=== PATIENT | female | born 1925 | race African-American/Black ===

== ENCOUNTER 2017-01-16 12:06 | Inpatient (IN) | payer OTHER, MEDICAID ==
[~2017-01-16] VITALS: Ht 167.6 cm; Wt 54.0 kg
[2017-01-16] MEDS ORDERED: COR3 PO (12:19)
[2017-01-16] MEDS ORDERED: ATOR10TA69 PO (12:19)
[2017-01-16] MEDS ORDERED: DOCU-138 PO (12:19)
[2017-01-16] MEDS ORDERED: FERR325T6 PO (12:19)
[2017-01-16] MEDS ORDERED: LISI40TA4 PO (12:19)
[2017-01-16] MEDS ORDERED: HYDR-4134 PO (12:19)
[2017-01-16] MEDS ORDERED: LEVO25TA2 PO (12:19)
[2017-01-16] MEDS ORDERED: LEVVL SQ (12:19)
[2017-01-16] MEDS ORDERED: PIPERACILLIN/TAZ 3.375G PREMIX 50 ML IV ONE (13:30)
[2017-01-16] MEDS ORDERED: SODIUM CHLORIDE 0.9% 1000ML BAG (SEPSIS BOLUS) IV ONE (13:30)
[2017-01-16] MEDS ORDERED: VANCOMYCIN 1 G PREMIX 200 ML IV SCH (13:30)
[2017-01-16 14:29] LABS: BASOPHILS % 0.7 % (0.0-2.0); EOSINOPHILS % 1.7 % (0.0-5.0); HEMATOCRIT. 21.1 % (36.0-48.0); LYMPHOCYTES % 12.9 % (20.0-50.0); MEAN CORPUSCULAR HEMOGLOBIN 21.7 pg (28.0-32.0); MEAN CORPUSCULAR VOLUME 66.1 fL (81.0-99.0); MEAN PLATELET VOLUME 7.6 fl (7.4-10.4); MONOCYTES % 13.3 % (2.0-8.0); NEUTROPHILS % 71.4 % (40.0-76.0); PLATELET 321 x1000/uL (130-400); RED BLOOD CELL COUNT 3.18 mill/uL (4.2-5.4); RED CELL DISTRIBUTION WIDTH 19.5 % (11.6-14.6)
[2017-01-16 14:34] LABS: INR 1.2; PARTIAL THROMBOPLASTIN TIME 30.8 sec (23.4-31.0); PROTHROMBIN TIME 12.2 sec (9.4-11.6)
[2017-01-16 14:36] LABS: HEMOGLOBIN. 6.9 g/dL (12.0-16.0)
[2017-01-16 14:39] LABS: CARBON DIOXIDE 24 mEq/L (21-32); CHLORIDE 96 mEq/L (98-107)
[2017-01-16 15:25] LABS: PLATELET ESTIMATE NORMAL
[2017-01-17] VITALS (7 sets, daily range): BP systolic 132–172; BP diastolic 45–70
[2017-01-17] MEDS ORDERED: ASCO125T PO (01:08)
[2017-01-17] MEDS ORDERED: MULT-1116 PO (01:08)
[2017-01-17] MEDS ORDERED: DEXTROSE 50% WATER 50ML SYRINGE IV PRN (02:30)
[2017-01-17] MEDS ORDERED: VANCOMYCIN 750 MG PREMIX 150 ML IV SCH (06:00)
[2017-01-17] MEDS: BLOOD SUGAR DIAGNOSTIC STRIP TEST SCH ×3 (06:15→16:45)
[2017-01-17] MEDS: LEVOTHYROXINE SODIUM 25MCG TABLET PO SCH ×3 (06:15→18:09)
[2017-01-17] MEDS: FERROUS SULFATE 325MG TABLET PO SCH ×3 (06:15→18:09)
[2017-01-17] MEDS: INSULIN LISPRO 100 UNITS/ML SUBCUT SCH ×3 (06:16→18:10)
[2017-01-17 06:37] LABS: HEMATOCRIT 27.1 % (36.0-48.0); HEMOGLOBIN 8.9 g/dL (12.0-16.0)
[2017-01-17] MEDS: CARVEDILOL 3.125 MG TABLET PO SCH ×2 (08:56→18:35)
[2017-01-17] MEDS: DOCUSATE SODIUM 100MG CAPSULE PO SCH ×2 (08:57→18:09)
[2017-01-17] MEDS ORDERED: MEDICATION NOT ON FORMULARY EA (Multivitamin (Multi-Vitamin Daily) 1 EACH) PO SCH (09:00)
[2017-01-17] MEDS ORDERED: MEDICATION NOT ON FORMULARY EA (Ferrous Sulfate 325 MG) PO SCH (09:00)
[2017-01-17] MEDS ORDERED: LISINOPRIL 40MG TABLET PO SCH (09:00)
[2017-01-17] MEDS ORDERED: MULTIVITAMINS,THER W-MINERALS TABLET PO SCH (09:00)
[2017-01-17] MEDS ORDERED: ENOXAPARIN 40MG/0.4ML SYR SUBCUT SCH (09:00)
[2017-01-17] MEDS ORDERED: HYDRALAZINE HCL 25MG TABLET PO SCH (09:00)
[2017-01-17 13:37] LABS: CARBON DIOXIDE 23 mEq/L (21-32); CHLORIDE 103 mEq/L (98-107)
[2017-01-17] MEDS ORDERED: LIDOCAINE HCL 1% 20ML VIAL (Pyxis) INJ ONE (14:06)
[2017-01-17] MEDS ORDERED: ATORVASTATIN CALCIUM 10MG TABLET PO SCH (21:00)
[2017-01-17] MEDS ORDERED: INSULIN DETEMIR UD 100 UNITS/ML SYR SUBCUT SCH (22:00)
== END 2017-01-17 19:20 | disposition short-term general hospital (02) | DRG 315 ==
LOC: ER 12:32 → 5WST 15:28 → ENRESERV 21:43
PROVIDERS: ADMIT Family Medicine; ATTEND Family Medicine
PROC: 30233N1 Transfusion of Nonautologous Red Blood Cells into Peripheral Vein, Percutaneous Approach (ICD-10-PCS; 2017-01-16)
PROC: 02HV33Z Insertion of Infusion Device into Superior Vena Cava, Percutaneous Approach (ICD-10-PCS; principal; 2017-01-17)
PROC: B548ZZA Ultrasonography of Superior Vena Cava, Guidance (ICD-10-PCS; 2017-01-17)
DX: T82.524A Displacement of infusion catheter, initial encounter (principal); E11.52 Type 2 diabetes mellitus with diabetic peripheral angiopathy with gangrene; E11.69 Type 2 diabetes mellitus with other specified complication; M86.172 Other acute osteomyelitis, left ankle and foot; M86.9 Osteomyelitis, unspecified; E44.1 Mild protein-calorie malnutrition; R13.10 Dysphagia, unspecified; D64.9 Anemia, unspecified; E03.9 Hypothyroidism, unspecified; E78.00 Pure hypercholesterolemia, unspecified; I10 Essential (primary) hypertension; F03.90 Unspecified dementia, unspecified severity, without behavioral disturbance, psychotic disturbance, mood disturbance, and anxiety; Y71.2 Prosthetic and other implants, materials and accessory cardiovascular devices associated with adverse incidents; Z74.01 Bed confinement status; E78.5 Hyperlipidemia, unspecified
CPT/HCPCS: 36415; 36569; 71010; 73610; 76937; 77001; 80048; 80053; 82962; 83605; 85014; 85018; 85025; 85610; 85730; 86850; 86900; 86920; 87040; 93005; 96365; 96368; 99285; C1725; J1650; J1815; J2543; J3370; J3490; J7030; J7050; P9016